=== PATIENT | female | born 1965 | race Caucasian/White ===

== ENCOUNTER 2016-09-11 14:18 | Emergency (ER) | payer OTHER ==
[~2016-09-11] VITALS: Ht 162.6 cm; Wt 76.2 kg
[~2016-09-11 14:18] MED LIST: CARISOPRODOL 3350 MG PO; FLEXERIL PO; GLUCOPHAGE500 MG PO; IBUPROFEN 600600 M1 PO; IBUPROFEN 800800 M1; MEDROLDOSEPACK PO; NORCO 5-325 TA1 EACH PO; PRAVACHOL40 MG; SYNTHROID200 MCG; TAGAMETTAB; VICODIN 5-5001 EACH PO; WELLBUTRIN 100100 MG; ZANTAC 150MG T150 M1 PO
[2016-09-11 14:25] VITALS: BP 124/67
[2016-09-11] MEDS ORDERED: PRAVASTATIN SOD80 MG PO (14:37)
[2016-09-11] MEDS ORDERED: METFORMIN HCL1000 MG PO (14:37)
[2016-09-11] MEDS ORDERED: WELLBUTRIN SR150 MG PO (14:37)
[2016-09-11] MEDS ORDERED: RANITIDINE HCL300 MG PO (14:39)
[2016-09-11] MEDS ORDERED: HYDROCODONE-AP1 EAC6 PO (14:39)
[2016-09-11] MEDS ORDERED: LEVOTHYROXIN0.175 MG PO (14:40)
== END 2016-09-11 14:55 | disposition left against medical advice (07) ==
LOC: ER 14:18
DX: M79.605 Pain in left leg (principal); M79.604 Pain in right leg; K21.9 Gastro-esophageal reflux disease without esophagitis; E03.9 Hypothyroidism, unspecified; E78.00 Pure hypercholesterolemia, unspecified; E11.9 Type 2 diabetes mellitus without complications; F17.210 Nicotine dependence, cigarettes, uncomplicated; Z88.2 Allergy status to sulfonamides; Z88.5 Allergy status to narcotic agent; Z88.8 Allergy status to other drugs, medicaments and biological substances